=== PATIENT | male | born 1935 ===

== ENCOUNTER 2018-06-13 11:32 | Outpatient (CLI) | payer OTHER ==
[~2018-06-13 11:32] MED LIST: ACIDOPHILUS1 EAC3 PO; CRESTOR5 MG; FLEXERIL10 MG PO; TOPROL XL25 M1; TUSSI PRES-B L120 M1 PO; ZANTAC150 MG PO
== END 2018-06-13 11:46 | disposition home or self-care (01) ==
LOC: EKG 11:32
DX: I10 Essential (primary) hypertension (principal)